=== PATIENT | male | born 1980 | race Two or more races ===

== ENCOUNTER 2019-01-13 10:00 | Emergency (ER) | payer MEDICAID ==
[~2019-01-13] VITALS: Ht 170.2 cm; Wt 80.7 kg
[2019-01-13 13:27] LABS: BASOPHIL % 0.7 % (0-2); RED CELL DISTRIBUTION WIDTH 14.1 % (11.5-14.5)
[2019-01-13 13:35] LABS: CALCIUM 8.7 mg/dL (8.5-10.1); CARBON DIOXIDE 29.2 mmol/L (21-32); CHLORIDE SERUM 100 mmol/L (98-107); CREATININE SERUM 0.4 mg/dL (0.7-1.3); GFR1 > 60 mL/min; GLUCOSE SERUM 105 mg/dL (74-106); POTASSIUM SERUM 3.4 mmol/L (3.5-5.1); SODIUM SERUM 138 mmol/L (136-145)
[2019-01-13 13:40] LABS: PLATELET COUNT 82 x10^3mcL (130-400)
[2019-01-13 13:48] LABS: ALBUMIN 3.6 g/dL (3.4-5.0); ALKALINE PHOSPHATASE 117 U/L (46-116); ALT/SGPT 48 U/L (16-63); AST/SGOT 119 U/L (15-37); BILIRUBIN TOTAL 0.8 mg/dL (0.20-1.00); FREE T4 0.81 ng/dL (0.76-1.46); LIPASE 160 IU/L (73-393); TOTAL PROTEIN, SERUM 7.8 g/dL (6.4-8.2)
[2019-01-13 15:16] VITALS: BP 139/84
== END 2019-01-13 15:16 | disposition short-term general hospital (02) ==
LOC: ED 10:00
PROVIDERS: Emergency Medicine
DX: S06.309A Unspecified focal traumatic brain injury with loss of consciousness of unspecified duration, initial encounter (principal); V99.XXXA Unspecified transport accident, initial encounter; Y93.89 Activity, other specified; Y92.413 State road as the place of occurrence of the external cause; Y99.8 Other external cause status
CPT/HCPCS: 84439; 87804; G0480; J1885; J2060; J2270

== ENCOUNTER 2019-06-23 09:55 | Inpatient (IN) | payer SELFPAY ==
[~2019-06-23] VITALS: Ht 172.7 cm; Wt 72.3 kg
--- NOTE | 2019-06-23 10:35 | NUR ---
PER PT HE HAS BEEN DRINKING ALCOHOL FOR MONTHS. PER PT HE WANTS HELP TO STOP DRINKING AND HE IS HAVING A HEADACHE. PER PT HE HAS BEEN DRINKING SIX PACKS EVERYDAY FOR MONTHS. PER PT LAST DRINK WAS AT 0300. PT STS HE IS HAVING GENERALIZED ABDOMINAL PAIN. PT STS HE HAS BEEN HAVING A HEADACHE SINCE 2011. PER SIGNIFICANT OTHER PT DOES NOT STOP DRINKING AND NEEDS HELP. PT DENIES ANY TRAUAM TO HEAD. PT IS VERBALIZING THAT HE WANT TO HARM HIMSELF BUT NO NE ELSE. DR. RAPP MADE AWARE.PT STS HE HAS NO PLAN TO HARM HIMSELF. ALL SI PRECAUTIONS IN PLACE. PT IN CLEAR AND FULL VIEW OF NURSING STATION. BELONGINGS PLACED IN BAG AND WITH FAMILY. PT DENIES ANY BLURRY VISION BUT HAS SOME DIZZINESS. VSS. RESP E/U. SEIZURE PRECAUTIONS IN PLACE. WILL CONTINUE TO MONITOR.
[2019-06-23 10:52] LABS: BASOPHIL % 0.6 % (0-2)
[2019-06-23 10:53] LABS: PLATELET COUNT 81 x10^3mcL (130-400); RED CELL DISTRIBUTION WIDTH 16.2 % (11.5-14.5)
[2019-06-23 10:54] LABS: CALCIUM 8.6 mg/dL (8.5-10.1); CHLORIDE SERUM 99 mmol/L (98-107); CREATININE SERUM 0.4 mg/dL (0.7-1.3); GFR1 > 60 mL/min; GLUCOSE SERUM 92 mg/dL (74-106); POTASSIUM SERUM 3.7 mmol/L (3.5-5.1); SODIUM SERUM 138 mmol/L (136-145)
[2019-06-23 11:05] LABS: ALBUMIN 4.5 g/dL (3.4-5.0); ALKALINE PHOSPHATASE 105 U/L (46-116); ALT/SGPT 33 U/L (16-63); AST/SGOT 75 U/L (15-37); BILIRUBIN TOTAL 0.8 mg/dL (0.20-1.00); LIPASE 287 IU/L (73-393)
--- NOTE | 2019-06-23 11:47 | NUR ---
PT IN POSITION OF COMFORT. VISIBLE CHEST RISE AND FALL. PT GAVE URINE SAMPLE. VSS. NO DISTRESS NOTED. WILL CONTINUE TO MONITOR.
[2019-06-23 12:10] LABS: UA SPECIFIC GRAVITY 1.015 (1.005-1.035); microscopic required? YES; urine erythrocyte 3+ (NEGATIVE)
--- NOTE | 2019-06-23 13:47 | NUR ---
TELE PSYCH REQUESTED.
--- NOTE | 2019-06-23 15:04 | NUR ---
TELE PSYCH COMPLETED.
--- NOTE | 2019-06-23 15:34 | NUR ---
HAVE BEEN CALLED TO [facility] TO PL[facility] PT ON 5150 HOLD. REVIEWED Ash CHART NOTING STATEMENT TO HARM HIMSELF. PER [facility]. MD- TELEPSYCH MD SAID PATIENT WANTS TO GET A GUN AND BLOW HIS HEAD OFF. HX- 1 PRIOR VISIT FOR CEREBERAL BLEED, TRANSFERED TO [facility]UR[facility] [place] [facility] [place] HIM RECORDS. PAULINA COWAN PT, WILL USE KHMER SPEEKING RN OR FAMILY REUNIFICATION SPECIALIST SERVICE TO INFORM PT OF 5150.
--- NOTE | 2019-06-23 15:39 | NUR ---
RAJI RN AT BEDSIDE TO WRITE [id number] HOLD
--- NOTE | 2019-06-23 16:30 | NUR ---
RE: 5150 HAD EXTENSIVE CONVERSATION WITH [facility] VIA COLLEGE DIRECTOR FELIPE # [id number]. PT WANTS AND WILL ACCEPT HELP VIA 5150 AND UNDERSTANDS THIS IS DUE TO STATEMENTS HE HAS MADE TO NURSE PRACTITIONER ADULT AND TELE-PSYCH MD. HE WAS PROVIDED WITH PO FLUIDS PER HIS REQUEST WITH ED MD VERBAL ORDER. HE IS ALSO AWARE HE MAY HAVE VISITORS HER AT [facility] WHILE TRANSFER IS BEING ARRANGED.
--- NOTE | 2019-06-23 16:35 | NUR ---
REST OF BELONGINGS TAKEN AND PLACED IN RADIO ROOM. PT ON FULL SI AND HI. IN CLEAR AND FULL VIEW OF NURSING STATION.
--- NOTE | 2019-06-23 17:15 | NUR ---
PT ASSISSTED TO RESTROOM.
--- NOTE | 2019-06-23 17:24 | NUR ---
PT ASSISSTED BACK TO [facility] WITH SIDE RAILS UP FOR SAFETY. PT PLACED ON FULL CM. VSS. RESP E/U. WILL CONTINUE TO MONITOR. PT GIVEN 2 SANDWICHED AND APPLE JUICE.
--- NOTE | 2019-06-23 17:31 | NUR ---
PT REQUESTING TO TAKE PT WALLET. GIVE SMALL SQUARE BROWN WALLET. CHARGE PAIGE MADE AWARE. RIKKI GUERRERO: [phone].
--- NOTE | 2019-06-23 19:21 | NUR ---
REPORT GIVENT TO DAT PURCELL TO ASSUME CARE OF PT.
--- NOTE | 2019-06-23 19:56 | NUR ---
PT OFF THE FLOOR FOR CT SCAN.
--- NOTE | 2019-06-23 20:26 | NUR ---
PT RESTING IN BED AT THIS TIME WITH EYES CLOSED. PT VITALS ARE WNL. PT HAS NO COMPLAINTS AT THIS TIME. PT IN FULL VIEW OF NURSING STATION. NO ACUTE DISTRESS NOTED.
--- NOTE | 2019-06-23 21:32 | NUR ---
PT RSTING IN BED. PT COMPLAINING OF SHAKINESS AND FEELING WARM. PT TEMP 98.4 ORAL. PT VITALS WNL. PT NO COMPLAINING OF ANY PAIN AT THIS TIME. NO ACUTE DISTRESS NOTED. PT PROVIDED WITH ICE WATER.
--- NOTE | 2019-06-23 23:10 | NUR ---
PT SLEEPING AT THIS TIME, EQUAL CHEST RISE AND FALL NOTED. PT VITALS WNL. NO ACUTE DISTRESS NOTED.
--- NOTE | 2019-06-24 01:32 | NUR ---
PT SLEEPING AT THIS TIME, EQUAL CHEST RISE AND FAL NOTED. PT VITALS ARE STABLE. NO ACUTE DISTRESS NOTED. PT IN FULL VIEW OF NURSING STATION.
--- NOTE | 2019-06-24 02:57 | NUR ---
PT HEART RATE NOTED IN 120S ON MONITOR, UPON ENTERING ROOM, PT HAS SEVERE SHAKES. PT IS URINATING INTO URINAL, UPON FINISHING HE IS UNABLE TO STOP SHAKING LONG ENOUGH TO CLOSE CAP ON URINAL. THEN PT ASKED IF HE CAN GET PILL OR FLUIDS IN HIS IV. INFORMED PT THAT I WILL SPEAK WITH THE DR REGARDING REQUEST. PT GAVE UNDERSETANDING.
--- NOTE | 2019-06-24 05:17 | NUR ---
PT RESTING AT THIS TIME IN A POSITION OF COMFORT. PT VITALS ARE WNL. EQUAL CHEST RISE AND FALL NOTED. PT IN FULL VIEW OF NURSING STATION. NO ACUTE DISTRESS NOTED.
--- NOTE | 2019-06-24 06:52 | NUR ---
PT SLEEPING AT THIS TIME, EQUAL CHEST RISE AND FALL NOTED. PT VITALS ARE STABLE. NO ACUTE DISTRESS NOTED.
--- NOTE | 2019-06-24 07:15 | NUR ---
REPORT RECEIVED FROM BINH DAUGHERTY TO ASSUME CARE OF PT. PT SLEEPING ON GURNEY, CHEST RISE AND FALL NOTED, RESP E/U, NO ACUTE DISTRESS NOTED AT THIS TIME. PT WITHIN VIEW OF NURSES STATION. WILL CONTINUE TO MONITOR.
--- NOTE | 2019-06-24 09:00 | NUR ---
PT SLEEPING ON GURNEY IN POSITION OF COMFORT, CHEST RISE AND FALL NOTED, RESP E/U, NO ACUTE DISTRESS NOTED AT THIS TIME.
--- NOTE | 2019-06-24 11:37 | NUR ---
PT INISISTED TO AMBULATED TO RESTROOM TO HAVE A BM, PT TOLERATED WELL, PLACED ON FULL CM, SEIZURE PRECAUTIONS IN PLACE, CALL LIGHT WITHIN REACH, IN FULL VIEW FROM NURSES STATION, RESPS E/U, TREMORS NOTED TO LYNETTE UPPER EXTREMETIES. PT IN POSITION OF COMFORT.
--- NOTE | 2019-06-24 12:25 | NUR ---
RESIDENT AT BEDSIDE USING TRANLATOR PHONES TO ASSESS PT.
--- NOTE | 2019-06-24 13:07 | NUR ---
PT MEDICATED PER EMAR, EATING LUNCH AT THIS TIME, NAD NOTED.
--- NOTE | 2019-06-24 13:32 | NUR ---
REPORT CALLED TO BINH WANG ON TELE UNIT TO ASSUME CARE OF PT.
--- NOTE | 2019-06-24 13:46 | NUR ---
RECEIVED PT FROM ED VIA [facility], PT STATED THAT HE NEEDS HELP WITH HIS ALCOHOLISM, TAKES 15 BEERS/DAY. AAOX4. C/O HEADACHE. DENIES DIZZINESS. ABLE TO FOLLOW COMMANDS. NO SOB NOTED, LUNG SOUNDS CTA. DENIES CHEST PAIN/PRESSURE, SINUS TACHYCARDIA ON THE MONITOR. C/O MILD BLOODY STOOLS AND VOMITED X2 W/ BLOOD. DENIES ABDOMINAL PAIN/NAUSEA/VOMITING. C/O DARK ZAC COLORED URINE. W/ DRY SCABS ON THE LEFT FACE AND PINK DISCOLORATIONS ON THE RIGHT ANTECUBITAL AREA. PT IS VERY SHAKY W/ MILD GENERALIZED WEAKNESS. PADDED SIDE RAILS UPX2. CALL LIGHT ON REACH. HOB ELEVATED AT 30 DEG. SITTER AT BEDSIDE. PRIMARY NURSE VINCE AT BEDSIDE FOR CONTINUITY OF CARE
[2019-06-24 14:06] VITALS: BP 151/93
--- NOTE | 2019-06-24 14:08 | NUR ---
ATIVAN 2MG IVP GIVEN FOR AGITATION. SITTER AT BEDSIDE. SIDERAILS PADDED.
[2019-06-24 14:15] VITALS: Ht 172.7 cm; Wt 72.3 kg
--- NOTE | 2019-06-24 14:49 | NUR ---
MD GOLDEN SAYED MADE AWARE OF VOMITING AND BOWEL MOVEMENT WITH BLOOD PRIOR TO ADMISSION. PATIENT LESS AGITATED AT THIS TIME. LIBRIUM 25 MG GIVEN.
[2019-06-24 16:52] VITALS: BP 143/85
--- NOTE | 2019-06-24 17:10 | NUR ---
ASLEEP. RR 18. UPPER RALES PADDED. SITTER AT BEDSIDE.
--- NOTE | 2019-06-24 18:25 | NUR ---
STARTED ON NS AT 100CC/HR. ATIVAN 2MG IVP GIVEN FOR AGITATION. SITTER AT BEDSIDE.
--- NOTE | 2019-06-24 19:23 | NUR ---
HANDOFF REPORT GIVEN TO BINH MCCAIN. PATIENT AWAKE STILL WITH ANXIETY AND AGITATION. MOVING THE TUBES AROUND AND EXPRESSING CONCERN ABOUT MOVING TO ANOTHER ROOM. REASSURED THAT ALL TUBES ARE OKAY AND THE MOVE IS A NECESSITY. CALL CHONG WITHIN REACH.
--- NOTE | 2019-06-24 19:35 | NUR ---
RECEIVED REPORT FROM AN NURSE. PT LAYIND DOWN IN BED. PT AAOX4, VERY RESTLESS. ABLE TO MAKE NEEDS KNOWN. ON TELE#11 READING SN. LÓPEZ CP/PRESURE AT THIS TIME. PALPABLE PULSES TO BLE AND BUE. NO EDEMA NOTED. LUNG SOUNDS CTA. BREATHING EVEN AND UNLABORED ON RA. NO ACUTE DISTRESS NOTED. ABD SOFT AND NONDISTENDED. ACTVIE BS X4 QUAD. DENIES N/V/D. LAST BM 06/24/19. VOIDS FREELY BRP. GENERALIZED WEAKNESS. UNSTEADY GAIT. AMBULATORY WITH ASSIST. DRY ABRASION TO LEFT SIDE OF FACE MYAH. IV TO RFA INFUSING NS AT 100ML/HR. SITE FREE FROM REDNESS AND SWELLING. BED AT LOWEST SETTING. SIDE RAILS X2 UP. STAFF AT BEDSIDE. CALL LIGHT WITHING REACH. WILL CONTINUE TO MONITOR.
--- NOTE | 2019-06-24 20:30 | NUR ---
PT VERY RESTLESS AND WANTS TO GET UP FROM BED. SATATES FEELING VERY ANXIOUS AND WEAK. MEDICATED WITH PRN ATIVAN PER DEC. STATED HE HAS BEEN DRINKING A LOT ALCOHOL LATELY. MADE DR SMITH AWARE, DUE TO HIGH ALCOHOL LEVELS. AWAITING FOR FURTHER ORDER FROM . WILL CONTINUE TO MONITOR.
--- NOTE | 2019-06-24 20:54 | NUR ---
Change of shift report given will continue to monitor notes and placement
[2019-06-24 22:00] VITALS: BP 125/85
--- NOTE | 2019-06-24 23:36 | NUR ---
PT CONTINUES TO BE RESTLESS. MEDICATED WITH PRN LIBRIUM PER MAR. WILL CONTINUE TO MONITOR.
--- NOTE | 2019-06-25 00:10 | NUR ---
PT AWAKE LAYING DOWN IN BED. PT STATES FEELING BETTER. BREATHING EVEN AND UNLABORED ON RA. NO ACUTE DISTRESS NOTED. BED AT LOWEST SETTING. SIDE RAILS X2 UP. CALL LIGHT WITHING REACH. STAFF AT BEDSIDE. WILL CONTINUET TO MONITOR.
--- NOTE | 2019-06-25 04:03 | NUR ---
PT FEELING VERY ANXIOUS, MEDICATED WITH PRN ATIVAN PER MAR. WILL CONTINUE TO MONITOR.
[2019-06-25 06:06] VITALS: BP 131/70
--- NOTE | 2019-06-25 06:08 | NUR ---
PT SLEPT AT INTERVALS THROGHOUT THE NIGHT. BREATHING EVEN AND UNLABORED ON RA. PT SEEMS CALMER AT THIS TIME. ALL NEEDS ASSESSED AND ATTENDED TO. NO ACUTE DISTRESS NOTED. STAFF AT BEDSIDE. DENIES SUICIDAL THOUGHTS. BED AT LOWEST SETTING. SIDE RAILS X2 UP. CALL LIGHT WITHING REACH. WILL ENDORSE CARE TO AM NURSE.
[2019-06-25 06:43] LABS: BASOPHIL % 0.8 % (0-2)
[2019-06-25 06:57] LABS: CALCIUM 8.9 mg/dL (8.5-10.1); CARBON DIOXIDE 24.9 mmol/L (21-32); CHLORIDE SERUM 100 mmol/L (98-107); CREATININE SERUM 0.5 mg/dL (0.7-1.3); GFR1 > 60 mL/min; GLUCOSE SERUM 83 mg/dL (74-106); POTASSIUM SERUM 3.3 mmol/L (3.5-5.1); SODIUM SERUM 138 mmol/L (136-145)
--- NOTE | 2019-06-25 07:21 | NUR ---
REPORT TAKEN FROM SHOE TREER NURSE AT THE BEDSIDE, PT RESTING AND DID NOT WAKE FOR REPORT, CHEST RISE AND FALL OBSERVED, WILL CONTINUE TO MONITOR. SITTER AT THE BEDSIDE.
[2019-06-25 07:28] LABS: PLATELET COUNT 62 x10^3mcL (130-400); RED CELL DISTRIBUTION WIDTH 15.9 % (11.5-14.5)
[2019-06-25 08:22] VITALS: BP 111/64
[2019-06-25 17:10] VITALS: BP 137/71
--- NOTE | 2019-06-25 18:25 | NUR ---
PT TOLERATED TREATMENT WELL DURING THE SHIFT, NO ADVERSE EVENTS TO REPORT TO NIGHT NURSE, DENIED PAIN OR ADDITIONAL NEEDS AT THIS TIME. WILL REPORT TO STEAM SHOVEL OPERATOR NURSE AND ENDORSE CARE.
--- NOTE | 2019-06-25 19:10 | NUR ---
REPORT GIVEN TO DIRECTOR SYSTEMS NURSE CARE ENDORSED
[2019-06-25 19:26] VITALS: BP 107/80
--- NOTE | 2019-06-25 20:36 | NUR ---
PT'S IN SITTING ON THE EDGE OF THE BED AAO FRENCH SPEAKING ONLY , LUNG SOUNDS CTA , ABD SOFT BS ACTIVE X4, HL PATENT FLUSHING WELL , ON TELE NU,MINH [address] PT DENY CHEST PAIN , ON ETOH PROT. WILL MONITOR PT CLOSELY , CALL LIGHT WITHIN PT;S REACH .
--- NOTE | 2019-06-26 04:11 | NUR ---
I HAVE REVIEWED THE DATA COLLECTION BY PORTRAIT PAINTER (NAME):KENIA VELIZ ENTERED ON (DATE/TIME): I CONCUR WITH THE DATA AND ANY EXCEPTIONS OR COMMENTS ARE LISTED BELOW:
[2019-06-26 04:49] VITALS: BP 124/78
--- NOTE | 2019-06-26 04:59 | NUR ---
PT'S IN BED WITH EYES CLOSED ,TELE NSRS.
--- NOTE | 2019-06-26 06:27 | NUR ---
PT'S IN BED AWAKE NO ACUTE DISTRESS NOTED, ALL DUE MEDS GIVEN NO REACTION NO MADAN , NOT TRREMORS AT THE MOMENT , TELE NSR .
[2019-06-26 06:58] LABS: BASOPHIL % 0.5 % (0-2)
[2019-06-26 07:08] LABS: PLATELET COUNT 81 x10^3mcL (130-400); RED CELL DISTRIBUTION WIDTH 15.9 % (11.5-14.5)
[2019-06-26 07:12] LABS: CALCIUM 8.7 mg/dL (8.5-10.1); CARBON DIOXIDE 20.6 mmol/L (21-32); CHLORIDE SERUM 101 mmol/L (98-107); CREATININE SERUM 0.5 mg/dL (0.7-1.3); GFR1 > 60 mL/min; GLUCOSE SERUM 81 mg/dL (74-106); POTASSIUM SERUM 3.4 mmol/L (3.5-5.1); SODIUM SERUM 138 mmol/L (136-145)
--- NOTE | 2019-06-26 07:28 | NUR ---
ASSUMED CARE OF PATIENT. AWAKE THIS MORNING. [place] SPEAKING. SLIGHT TREMORS NOTED. NO COMPLAINTS OF PAIN OR DISCOMFORT. NO APPARENT DISTRESS NOTED. IV TO LFA SALINE LOCKED. WILL CONTINUE TO MONITOR.
[2019-06-26 08:44] VITALS: BP 121/85
--- NOTE | 2019-06-26 09:16 | NUR ---
PATIENT RESTING IN BED WITH NO COMPLAINTS OF PAIN OR DISCOMFORT. NO APPARENT DISTRESS NOTED. NO NEW ISSUES.
--- NOTE | 2019-06-26 11:29 | NUR ---
PATIENT SEEN RESTING IN BED WITH NO COMPLAINTS OF PAIN OR DISCOMFORT. NO APPARENT DISTRESS NOTED. NO NEW ISSUES.
[2019-06-26 11:47] VITALS: BP 118/73
--- NOTE | 2019-06-26 11:58 | NUR ---
PATIENT COMPLAINING OF 4/10 HEADACHE, PRN TYLENOL PROVIDED. ALSO COMPLAINING OF BLOOD IN STOOL.
--- NOTE | 2019-06-26 12:03 | NUR ---
PATIENT COMPLAINING OF BLOODY STOOL. STOOL WAS NOT SHOWN TO THIS RN. PREVIOUS OB STOOL RESULT NEGATIVE. NAILER MACHINE MALISSA NOTIFIED. TO INITIATE PROTONIX TOMORROW AND OBSERVE.
--- NOTE | 2019-06-26 14:27 | NUR ---
PATIENT SEEN IN ROOM WITH COMPLAINTS OF 2/10 HEADACHE. NO APPARENT DISTRESS NOTED. FAMILY AT BEDSIDE. NO NEW ISSUES.
--- NOTE | 2019-06-26 14:50 | NUR ---
Discount pharmacy card and list to low cost medical clinics given to patient by Sofie.
--- NOTE | 2019-06-26 15:37 | NUR ---
PATIENT SHOWED THIS RN HIS BM. STOOL IS LIQUID WITH FROTH AND BRIGHT RED BLOOD. ATTEMPTING TO NOTIFY NUCLEAR PLANT CONSTRUCTION WORKER MALISSA.
--- NOTE | 2019-06-26 15:43 | NUR ---
HANG LEONARDO NOTIFIED OF BRIGHT RED BLOOD PER RECTUM
--- NOTE | 2019-06-26 18:57 | NUR ---
PATIENT SEEN IN BED WITH NO COMPLAINTS OF PAIN OR DISCOMFORT. NO APPARENT DISTRESS NOTED. IV REMAINS SALINE LOCKED. WILL ENDORSE CARE TO ONCOMING RN.
--- NOTE | 2019-06-26 19:30 | NUR ---
RECIEVED PATIENT AT START OF SHIFT A/O X4. DENEIS PAIN. DENIES SUICIDE IDEATION. ON TELE 11 NSR 84. NO SOB ON RA. SLIGHT HAND TREMORS NOTED. IV TO LFA SALINE LOCKED AND PATENT. BED LOCKED AND IN LOWEST POSITION. CALL LIGHT WITHIN REACH.
[2019-06-26 20:44] VITALS: BP 130/83
--- NOTE | 2019-06-26 21:06 | NUR ---
PATIENT GIVEN TYLENOL PER EMAR FOR HEADACHE AND ATIVAN FOR REPORT OF ANXIETY AND TROUBLE SLEEPING.
--- NOTE | 2019-06-27 01:08 | NUR ---
PATIENT IS AWAKE WATCHING TV. TELE 11 NSR HR 98. DENIES PAIN. IV SALINE LOCKED. CALL LIGHT WITHIN REACH.
[2019-06-27 05:09] VITALS: BP 109/62
--- NOTE | 2019-06-27 06:00 | NUR ---
PATIENT IS AWAKE. HAND TREMORS PRESENT. REPORTS 8/10 HEADACHE. TYLENOL GIVEN PER EMAR. IV IS SALINE LOCKED AND PATENT ON LFA. NO FURTHER SIGNIFICANT EVENTS THIS SHIFT. WILL ENDORSE CRAE TO DAYSHIFT NURSE.
[2019-06-27 06:35] LABS: CALCIUM 8.6 mg/dL (8.5-10.1); CARBON DIOXIDE 23.4 mmol/L (21-32); CHLORIDE SERUM 102 mmol/L (98-107); CREATININE SERUM 0.6 mg/dL (0.7-1.3); GFR1 > 60 mL/min; GLUCOSE SERUM 83 mg/dL (74-106); POTASSIUM SERUM 3.3 mmol/L (3.5-5.1); SODIUM SERUM 139 mmol/L (136-145)
[2019-06-27 07:13] LABS: BASOPHIL % 1.1 % (0-2)
[2019-06-27 07:14] LABS: PLATELET COUNT 101 x10^3mcL (130-400); RED CELL DISTRIBUTION WIDTH 15.9 % (11.5-14.5)
--- NOTE | 2019-06-27 07:20 | NUR ---
RECEIVED PT FROM MACHINE BUILDER. PT AWAKE, ALERT. A/OX4. PT COMPLAINING OF HEADACHE, WILL MEDICATE PRN. PT ON ROOM AIR WITH NO RESP DISTRESS NOTED. PT ON TELE 11, DENIES CHEST PAIN AT THIS TIME. PT NOTED TO HAVE TREMORS. PT STATED HE IS HAVING DIARRHEA WITH BLOOD NOTED. PER [facility] NURSE, DR CAMPA CONSULTED. IV ACCESS LFA CDI, SALINE LOCKED. PT NOTED TO HAVE GENERALIZED WEAKNESS. PT DENIES SUICIDAL IDEATION AT THIS TIME. SAFETY MEASURES IN PLACE, BED LOW AND LOCKED. CALL LIGHT WITHIN REACH.
--- NOTE | 2019-06-27 07:30 | NUR ---
RECEIVED PT FROM WHARF WORKER. PT AWAKE, ALERT A/OX4. PT ON ROOM AIR WITH NO RESP DISTRESS NOTED AT THIS TIME. PT DENIES HEADACHE. PT ON TELE 1, PACED. PT DENIES CHEST PAIN. IV ACCESS RFA CDI, SALINE LOCKED. PT HAS LFA AV SHUNT FOR HEMODIALYSIS. PERIPHERAL PULSES PALPABLE, NO EDEMA NOTED. ACTIVE BS NOTED. DENIES ABDOMINAL PAIN AT THIS TIME. SAFETY MEASURES IN PLACE, BED LOW AND LOCKED. CALL LIGHT WITHIN REACH.
[2019-06-27 07:50] VITALS: BP 118/970
--- NOTE | 2019-06-27 08:55 | NUR ---
PT POTASSIUM 3.3. MERYL GUTIERREZ NP AWARE, NEW ORDERS GIVEN
--- NOTE | 2019-06-27 10:45 | NUR ---
PT COMPLAINING OF HEADACHE 07/11. TYLENOL ADMINISTERED ORDERED PRN (SEE EMAR) WILL MONITOR.
[2019-06-27 11:58] VITALS: BP 121/53
--- NOTE | 2019-06-27 12:09 | NUR ---
PT SLEEPING AT THIS TIME WITH NO ACUTE DISTRESS OR DISCOMFORT NOTED.
--- NOTE | 2019-06-27 13:35 | NUR ---
USED SALES APPLICATIONS ENGINEER PHONE WITH SALES APPLICATIONS ENGINEER [id number] TO TRANSLATE TO GET CONSENT FOR EGD AND COLONOSCOPY SCHEDULED FOR TOMORROW MORNING. PT VERBALIZED UNDERSTANDING AND CONSENT.
--- NOTE | 2019-06-27 15:17 | NUR ---
PT GETTING US OF THE ABDOMEN AT THIS TIME.
--- NOTE | 2019-06-27 15:55 | NUR ---
PT COMPLAINING OF HEADACHE PAIN 07/11. TYLENOL ADMINISTERED ORDERED PRN (SEE EMAR).
--- NOTE | 2019-06-27 16:00 | NUR ---
DOSE ONE OF BOWEL PREP KIT ADMINISTERED AT THIS TIME.
--- NOTE | 2019-06-27 17:00 | NUR ---
PT FINISHED WATER ADMINISTERED WITH BOWEL PREP. PT REPORTS SOME RELIEF OF HEADACHE AFTER ADMNINSTRATION OF TYLENOL. WILL CONT TO MONITOR.
[2019-06-27 17:15] VITALS: BP 106/65
--- NOTE | 2019-06-27 18:26 | NUR ---
PT STABLE AT THIS TIME. ALL NEEDS TENDED TO THROUGHOUT SHIFT. WILL CONTINUE TO MONITOR AND ENDORSE CARE TO BACK FEEDER PLY[place]OD LAYUP LINE.
--- NOTE | 2019-06-27 19:55 | NUR ---
PATIENT RECEIVED RESTING IN BED. RESPIRATION EVEN AND UNLABORED, ON ROOM AIR. ONGOING D5 1/2NS WITH 40 MEQS KCL AT 80 CC/HR INFUSING WELL AT THE LEFT FOREARM. FOR EGD/COLONOSCOPY TOMORROW, ON BOWEL PREP. VOIDING FREELY WITHOUT DIFFICULTY. GENERALIZED WEAKNESS, POSITIVE TREMORS. ABRASIONS TO FACE. WILL CONTINUE TO MONITOR.
--- NOTE | 2019-06-27 21:00 | NUR ---
2ND DOSE OF BOWEL PREP ADMINISTERED AT THIS TIME.WILL CONTINUE TO MONITOR.
[2019-06-27 21:01] VITALS: BP 118/76
--- NOTE | 2019-06-28 02:58 | NUR ---
PT C/O ABDOMINLA PAIN 06/10. MEDICATED MORPHINE 2 M IV ORDERED. WILL CONTINUE TO MONITOR.
--- NOTE | 2019-06-28 05:30 | NUR ---
PT APPEARS TO BE SLEEPING. NO SOB NOTED. BM CLEAR. DENIES PAIN AT THIS TIME. BED IN LOWEST POSITION,CALL LIGHT WITHIN REACH. WILL CONTINUE TO MONITOR.
[2019-06-28 05:35] VITALS: BP 108/65
--- NOTE | 2019-06-28 07:23 | NUR ---
CARE ENDORSED TO DAY NURSE SEEMA. ALL QUESTIONS AND CONCERN WERE ADDRESSED.
[2019-06-28 07:28] LABS: BASOPHIL % 0.8 % (0-2)
--- NOTE | 2019-06-28 07:33 | NUR ---
RECEIVED PT FROM PATRICIA RN. PT AA/OX4. NO S/S OF ACUTE DISTRESS. NO SOB ON ROOM AIR. IV WNL TO LFA, IV FLUDIS FLOWING. NO CHEST PAIN. LYNN. NO DIZZINESS. CALM/COOPERATIVE. NO N/V. NO CHILLS. NO FEVER. BED IN LOW POSITION. CALL LIGHT WITHIN REACH. WILL CONTINUE TO MONITOR.
[2019-06-28 07:50] LABS: CALCIUM 8.4 mg/dL (8.5-10.1); CARBON DIOXIDE 22.6 mmol/L (21-32); CHLORIDE SERUM 105 mmol/L (98-107); CREATININE SERUM 0.5 mg/dL (0.7-1.3); GFR1 > 60 mL/min; GLUCOSE SERUM 81 mg/dL (74-106); POTASSIUM SERUM 3.4 mmol/L (3.5-5.1); SODIUM SERUM 142 mmol/L (136-145)
--- NOTE | 2019-06-28 07:58 | NUR ---
PT BEING TAKEN TO EGD, TAKEN BY NANCY. AA/OX4. NO S/S OF ACUTE DISTRESS. NO SOB ON ROOM AIR. NO N/V. VOID URINE X1 FREELY. NO N/V. NO CHEST PAIN. BELONGINGS KEPT IN PT ROOM.
[2019-06-28 08:17] LABS: PLATELET COUNT 101 x10^3mcL (130-400); RED CELL DISTRIBUTION WIDTH 16.1 % (11.5-14.5)
[2019-06-28 09:45] VITALS: BP 129/77
--- NOTE | 2019-06-28 10:44 | NUR ---
PT SITTING AT SIDE OF BED. AA/OX4. TOLERATING REGULAR DIET WELL. DENIES N/V. PT REPORTS PAIN DECREASING, RATES ABD. PAIN 05/10. DECLINED TO ALTERNATE PAIN MEDICATION. NO S/S OF ACUTE DISTRESS. NO SOB ON ROOM AIR. NO CHEST PAIN. IV WNL. IV FLUIDS FLOWING. BED IN LOW POSITION. CALL LIGHT WITHIN REACH. WILL CONTINUE TO MONITOR.
--- NOTE | 2019-06-28 12:21 | NUR ---
PT RESTING IN BED WITH BOTH EYES CLOSED. EASILY AROUSABLE TO VERBAL STIMULI. DENIES PAIN AT THIS TIME. NO S/S OF ACUTE DISTRESS. FAMILY MEMBER AT BEDSIDE. AA/OX4. BED IN LOW POSITION. CALL LIGHT WITHIN REACH. WILL CONTINUE TO MONITOR.
[2019-06-28 12:22] VITALS: BP 114/60
[2019-06-28 12:53] VITALS: BP 128/90
--- NOTE | 2019-06-28 13:54 | NUR ---
PT BEING DISCHARGED TO HOME. AWAKE, ALERT, ORIENTED X4. SPEAKS MALIAN. DENIES ABD. PAIN AT THIS TIME. BM X2. FIRST BM BRIGHT RED BLOOD NOTED. SECOND BM BROWN/SOFT, NO BLOOD NOTED. DENIES DIZZINESS. NO LYNN. NO SOB ON ROOM AIR. NO FEVER. NO CHILLS. DISCHARGE EDUCATION PROVIDED TO PATIENT. INSTRUCTED TO FOLLOW UP WITH PCP. PT VERBALIZED UNDERSTANDING. NO S/S OF ACUTE DISTRESS. CALM/COOPERATIVE. IV REMOVED FROM LFA, CATHETER IN TACT. PRESSURE APPLIED. SITE WNL. VS STABLE. BELONGINGS WITH PATIENT. PT WAITING FOR RIDE HOME. WILL MONITOR.
--- NOTE | 2019-06-28 14:15 | NUR ---
TAKEN TO DISCHARGE LOBBY BY TATE CASTELLANOS. TAKEN BY WHEELCHAIR. AWAKE, ALERT, ORIENTED X4. NO S/S OF ACUTE DISTRESS. NO ABD. PAIN. NO N/V. NO CHEST PAIN. TELE REMOVED. NO SOB ON ROOM AIR. BELONGINGS WITH PT.
== END 2019-06-28 14:15 | disposition home or self-care (01) | DRG 377 ==
LOC: ED 09:55 → MU 06-24 09:43 → DU 06-24 09:43 → EDBEDREQ 06-24 09:43 → EDBEDREQSVC 06-24 09:46 → DU 06-24 13:35
PROVIDERS: Emergency Medicine; Internal Medicine; Internal Medicine Gastroenterology; ADMIT General Practice
PROC: 0DB68ZX Excision of Stomach, Via Natural or Artificial Opening Endoscopic, Diagnostic (ICD-10-PCS; principal; 2019-06-28 08:00)
PROC: 0DJD8ZZ Inspection of Lower Intestinal Tract, Via Natural or Artificial Opening Endoscopic (ICD-10-PCS; 2019-06-28 08:00)
DX: K29.71 Gastritis, unspecified, with bleeding (principal); G92 Toxic encephalopathy; R45.851 Suicidal ideations; K76.6 Portal hypertension; I10 Essential (primary) hypertension; K57.30 Diverticulosis of large intestine without perforation or abscess without bleeding; K64.8 Other hemorrhoids; K31.89 Other diseases of stomach and duodenum; F32.9 Major depressive disorder, single episode, unspecified; Z60.2 Problems related to living alone; F41.1 Generalized anxiety disorder; F10.120 Alcohol abuse with intoxication, uncomplicated; Y90.0 Blood alcohol level of less than 20 mg/100 ml; Z83.3 Family history of diabetes mellitus; Z82.49 Family history of ischemic heart disease and other diseases of the circulatory system; Z79.899 Other long term (current) drug therapy
CPT/HCPCS: 43235; 45378; C9113; G0378; G0480; J0696; J1200; J1610; J2060; J2250; J2270; J2310; J2405; J3010; J3411; J3480; J3490; J7030; J7050; J7060; Q0092

== ENCOUNTER 2020-05-12 20:57 | Emergency (ER) | payer SELFPAY ==
[~2020-05-12] VITALS: Ht 172.7 cm; Wt 83.6 kg
[2020-05-12 21:10] VITALS: Ht 172.7 cm; Wt 83.6 kg
[2020-05-12 23:08] LABS: BASOPHIL % 0.5 % (0-2)
[2020-05-12 23:12] LABS: PLATELET COUNT 57 x10^3mcL (130-400); RED CELL DISTRIBUTION WIDTH 15.6 % (11.5-14.5)
[2020-05-12 23:19] LABS: CALCIUM 7.7 mg/dL (8.5-10.1); CARBON DIOXIDE 28.2 mmol/L (21-32); CHLORIDE SERUM 105 mmol/L (98-107); CREATININE SERUM 0.5 mg/dL (0.7-1.3); GFR1 > 60 mL/min; GLUCOSE SERUM 101 mg/dL (74-106); POTASSIUM SERUM 3.5 mmol/L (3.5-5.1); SODIUM SERUM 142 mmol/L (136-145)
[2020-05-12 23:25] LABS: ALBUMIN 4.1 g/dL (3.4-5.0); ALKALINE PHOSPHATASE 87 U/L (46-116); ALT/SGPT 54 U/L (16-63); AST/SGOT 115 U/L (15-37); BILIRUBIN TOTAL 0.51 mg/dL (0.20-1.00); TOTAL PROTEIN, SERUM 7.9 g/dL (6.4-8.2)
[2020-05-13 02:18] VITALS: BP 115/73
== END 2020-05-13 02:12 | disposition home or self-care (01) ==
LOC: ED 20:57
PROVIDERS: Emergency Medicine
DX: F10.239 Alcohol dependence with withdrawal, unspecified (principal); I10 Essential (primary) hypertension
CPT/HCPCS: G0480; J2060; J3411; J3490; J7030